=== PATIENT | male | born 1955 | race Caucasian/White ===

== ENCOUNTER 2021-11-14 15:14 | Emergency (ER) | payer MEDICARE, OTHER ==
[~2021-11-14] VITALS: Ht 185.4 cm; Wt 92.5 kg
[2021-11-14 15:14] VITALS: BP 151/89
--- NOTE | 2021-11-14 15:14 | NUR ---
PT WANTS CT SCAN OF HIS LUNGS. PT BREATHING IS EVEN AND UNLABORED, NO SOB NOTED AT THIS TIME. DR RM CONSULTING PT.
--- NOTE | 2021-11-14 15:47 | NUR ---
PT LEFT WIHTOUT RECEIVING DISCHARGE PAPERS
== END 2021-11-14 15:49 | disposition home or self-care (01) ==
LOC: ER 15:17
DX: R91.1 Solitary pulmonary nodule (principal)